=== PATIENT | female | born 1985 | race Caucasian/White ===

== ENCOUNTER 2016-03-15 16:26 | Emergency (ER) | payer OTHER ==
[~2016-03-15] VITALS: Ht 180.3 cm; Wt 142.9 kg
[2016-03-15 16:28] VITALS: TEMP 36.6; Ht 180.3 cm; Wt 142.9 kg
[2016-03-15 16:38] VITALS: O2SAT 99
[2016-03-15] MEDS ORDERED: ONDANSETRON INJ 2 MG/ML 2 ML VIAL IV STA (16:58)
[2016-03-15] MEDS ORDERED: SODIUM CHLORIDE 0.9% 1000ML 1,000 ML IV STA (16:58)
--- NOTE | 2016-03-15 17:04 | EMERGENCY ROOM VISIT NOTE ---
History Report prepared by Liset: Kitty Hummel Under the Supervision of: Dr. Harleen Mendoza M.D. First contact with patient: 16:45 Chief Complaint: CHEST PAIN Stated Complaint: CHEST PAIN,NAUSEA,JAW PAIN Nursing Triage Summary: Chest discomfort, right sided arm pain. Eva dizzy/lightheaded while driving to [place], stopped here because of her symptoms. Recent travel to [place]. On BCP and is an occasional smoker. History of Present Illness The patient is a 30 year old female who presents to the Emergency Room with complaints of constant left sided chest pain beginning a few days ago. The patient states that she has been having some chest pain for the last few days that she thought was from her gallbladder as she has a family history of gallbladder issues. Today she reports that she was driving to [place] and began to feel dizzy and lightheaded. She states that she now feels shooting pain down her left arm and into her jaw. The patient notes that she went to [place] recently. She has associated shortness of breath, vomiting, dizziness, and lightheadedness. She denies any diarrhea and rectal bleeding. Source of History: patient Onset: a few days ago Position: chest Timing: constant Associated Symptoms: + SOB, + vomiting, No diarrhea Note: She has associated shortness of dizziness and lightheadedness. She denies any rectal bleeding. Review of Systems See HPI for pertinent positives & negatives. A total of 10 systems reviewed and were otherwise negative. Past Medical & Surgical Medical Problems: (1) No Known Active Medical Problems Family History FH: gallbladder disease Social History Smoking Status: Current Some Day Smoker Marital Status: single Occupation Status: employed Current/Historical Medications Scheduled Cetirizine (Zyrtec), 10 MG PO QPM Ethinyl Estradiol/Norethindr (Microgestin 1.5MG/30MG), 1 TAB PO DAILY Nebivolol Hcl (Bystolic), 10 MG PO QPM Pantoprazole (Protonix), 40 MG PO DAILY Sertraline (Zoloft), 100 MG PO QPM Allergies Coded Allergies: Cefuroxime (Unverified Allergy, Unknown, HIVES, 03/15/16) Physical Exam Vital Signs Date Time Temp Pulse Resp B/P Pulse Ox O2 Delivery O2 Flow Rate FiO2 03/15/16 20:20 68 20 167/93 97 Room Air 03/15/16 19:08 72 19 166/94 99 Room Air 03/15/16 18:38 69 20 137/93 100 Room Air 03/15/16 17:17 72 03/15/16 16:38 99 Room Air 03/15/16 16:28 36.6 86 20 179/108 98 Room Air Physical Exam Vital signs reviewed. General: Well-appearing, obese, in no significant distress. HEENT: No scleral icterus, PERRLA, neck supple. Atraumatic. Cardiovascular: Regular rate and rhythm, no extra sounds. Pulmonary: Clear to auscultation bilaterally, normal work of breathing. Abdomen: Soft, nontender, nondistended, positive bowel sounds. Musculoskeletal: Atraumatic, no peripheral edema. Neurologic: Patient awake alert and oriented x 3, full strength in all 4 extremities. Cranial nerves 2 through 12 grossly intact. Skin: Warm, dry, no rash Medical Decision & Procedures ER Provider Diagnostic Interpretation: X-ray results as stated below per interpretation by me and the radiologist: CHEST 2 VIEWS ROUTINE FINDINGS: The bones soft tissues and hemidiaphragms are normal. The cardiomediastinal silhouette is normal. The lungs are clear. The pulmonary vasculature is normal. IMPRESSION: Negative chest. Electronically signed by: Chapincito García M.D. 03/15/2016 5:50 PM Laboratory Results 03/15/16 17:15 Red Blood Count 5.02, Mean Corpuscular Volume 82.3, Mean Corpuscular Hemoglobin 29.3, Mean Corpuscular Hemoglobin Concent 35.6, Mean Platelet Volume 10.6, Neutrophils (%) (Auto) 61.2, Lymphocytes (%) (Auto) 30.2, Monocytes (%) (Auto) 6.5, Eosinophils (%) (Auto) 1.5, Basophils (%) (Auto) 0.3, Neutrophils # (Auto) 6.00, Lymphocytes # (Auto) 2.96, Monocytes # (Auto) 0.64, Eosinophils # (Auto) 0.15, Basophils # (Auto) 0.03 03/15/16 17:15 Test 03/15/16 17:15 03/15/16 17:20 03/15/16 19:00 White Blood Count 9.81 K/uL (4.8-10.8) Red Blood Count 5.02 M/uL (4.2-5.4) Hemoglobin 14.7 g/dL (12.0-16.0) Hematocrit 41.3 % (37-47) Mean Corpuscular Volume 82.3 fL (80-100) Mean Corpuscular Hemoglobin 29.3 pg (25-34) Mean Corpuscular Hemoglobin Concent 35.6 g/dl (32-36) Platelet Count 280 K/uL (130-400) Mean Platelet Volume 10.6 fL (7.4-10.4) Neutrophils (%) (Auto) 61.2 % Lymphocytes (%) (Auto) 30.2 % Monocytes (%) (Auto) 6.5 % Eosinophils (%) (Auto) 1.5 % Basophils (%) (Auto) 0.3 % Neutrophils # (Auto) 6.00 K/uL (1.4-6.5) Lymphocytes # (Auto) 2.96 K/uL (1.2-3.4) Monocytes # (Auto) 0.64 K/uL (0.11-0.59) Eosinophils # (Auto) 0.15 K/uL (0-0.5) Basophils # (Auto) 0.03 K/uL (0-0.2) RDW Standard Deviation 40.8 fL (36.4-46.3) RDW Coefficient of Variation 13.5 % (11.5-14.5) Immature Granulocyte % (Auto) 0.3 % Immature Granulocyte # (Auto) 0.03 K/uL (0.00-0.02) Prothrombin Time 10.0 SECONDS (9.0-12.0) Prothromb Time International Ratio 0.9 (0.9-1.1) Activated Partial Thromboplast Time 27.2 SECONDS (21.0-31.0) Partial Thromboplastin Ratio 1.0 Anion Gap 10.0 mmol/L (3-11) Est Creatinine Clear Calc Drug Dose 189.6 ml/min Estimated GFR () 134.8 Estimated GFR (Non- 116.3 BUN/Creatinine Ratio 13.7 (10-20) Calcium Level 8.8 mg/dl (8.5-10.1) Total Bilirubin 0.2 mg/dl (0.2-1) Direct Bilirubin < 0.1 mg/dl (0-0.2) Aspartate Amino Transf (AST/SGOT) 25 U/L (15-37) Alanine Aminotransferase (ALT/SGPT) 45 U/L (12-78) Alkaline Phosphatase 63 U/L (45-117) Total Creatine Kinase 74 U/L (26-192) Creatine Kinase MB < 0.5 ng/ml (0.5-3.6) Creatine Kinase MB Ratio (0-3.0) Total Protein 7.6 gm/dl (6.4-8.2) Albumin 3.7 gm/dl (3.4-5.0) Bedside D-Dimer 212 ng/mlFEU (0-450) Urine Color YELLOW Urine Appearance CLEAR (CLEAR) Urine pH 5.0 (4.5-7.5) Urine Specific [place] 1.009 (1.000-1.030) Urine Protein NEG (NEG) Urine Glucose (UA) NEG (NEG) Urine Ketones NEG (NEG) Urine Occult Blood NEG (NEG) Urine Nitrite NEG (NEG) Urine Bilirubin NEG (NEG) Urine Urobilinogen NEG (NEG) Urine Leukocyte Esterase TRACE (NEG) Urine WBC (Auto) 5-10 /hpf (0-5) Urine RBC (Auto) 0-4 /hpf (0-4) Urine Hyaline Casts (Auto) 0 /lpf (0-5) Urine Epithelial Cells (Auto) >30 /lpf (0-5) Urine Bacteria (Auto) NEG (NEG) Urine Yeast (Auto) PRESENT (NONE PRSENT) Laboratory results per my review. Medications Administered Medications (Trade) Dose Ordered Sig/Bobby Route Start Time Stop Time Status Last Admin Dose Admin Sodium Chloride (Nss 1000ml) 1,000 ml @ 999 mls/hr Q1H1M STAT IV 03/15/16 16:58 03/15/16 17:58 DC 03/15/16 17:16 999 MLS/HR Ondansetron HCl (Zofran Inj) 4 mg NOW STAT IV 03/15/16 16:58 03/15/16 17:01 DC 03/15/16 17:16 4 MG Pantoprazole Sodium (Protonix Tab) 40 mg NOW STAT PO 03/15/16 19:41 03/15/16 19:42 DC 03/15/16 20:15 40 MG ECG Indication: chest pain Rate (beats per minute): 74 Rhythm: normal sinus Findings: no acute ischemic change, no ectopy ED Course 1654: Past medical records reviewed. The patient was evaluated in room C4. A complete history and physical examination was performed. 1657: Zofran Inj 4mg IV, Sodium Chloride 1000 ml @ 999 mls/hr IV. 1940: Protonix Tab 40mg PO. 1914: Upon reevaluation, the patient appeared to have improvement of her symptoms. I discussed findings with the patient. She verbalized agreement of the treatment plan. The patient was discharged home. Medical Decision Differential diagnoses include gastritis, pancreatitis, peptic ulcer disease, PE. This patient was evaluated and appeared to be in no significant distress. IV access was obtained and laboratory work was drawn. The patient was hydrated with normal saline solution given Zofran for her nausea. Laboratory work reveals a normal d-dimer. There is no concerning abnormality of the laboratory work. Urinalysis appears to be contaminated, not infectious. This will be sent for culture. Patient was educated to the findings. I suspect she is having a gastritis. Viral or food/medication mediated. She will be placed on Protonix 40 mg daily. Patient was advised to avoid soda, coffee, alcohol and any greasy or spicy foods. She will follow-up with her physician upon return home and return to the ER for worsening of symptoms or any medical concerns. Impression Primary Impression: Vomiting Additional Impression: LUQ pain Scribe Attestation The scribe's documentation has been prepared under my direction and personally reviewed by me in its entirety. I confirm that the note above accurately reflects all work, treatment, procedures, and medical decision making performed by me. Departure Information Dispostion Home / Self-Care Prescriptions Pantoprazole (Protonix) 40 Mg Tab 40 MG PO DAILY, #30 TAB Prov: Harleen Mendoza M.D. 03/15/16 Referrals No Doctor, Assigned (PCP) Forms HOME CARE DOCUMENTATION FORM, IMPORTANT VISIT INFORMATION Patient Instructions A Signature Page, [facility] [employer] Additional Instructions Diagnosis: Vomiting, left upper quadrant pain Protonix 40 mg daily. Avoid alcohol, coffee and soda Drink plenty of clear fluids and maintain a bland diet until symptoms improve. Follow-up with your physician this week for reevaluation. Return to the ER for worsening of symptoms or any medical concerns.
[2016-03-15] MEDS ORDERED: CETI10TA84 PO (17:27)
[2016-03-15] MEDS ORDERED: NORE-24 PO (17:27)
[2016-03-15] MEDS ORDERED: NEBI10TA2 PO (17:27)
[2016-03-15] MEDS ORDERED: SERT-234 PO (17:27)
--- NOTE | 2016-03-15 17:52 | DIAGNOSTIC IMAGING REPORT ---
CHEST 2 VIEWS ROUTINE CLINICAL HISTORY: cough, L CP dyspnea COMPARISON STUDY: No previous studies for comparison. FINDINGS: The bones soft tissues and hemidiaphragms are normal. The cardiomediastinal silhouette is normal. The lungs are clear. The pulmonary vasculature is normal. IMPRESSION: Negative chest. Electronically signed by: Chapincito García M.D. 03/15/2016 5:50 PM
[2016-03-15 18:06] LABS: BASO % 0.3 %; BASO ABS # 0.03 K/uL (0-0.2); COMPLETE YES; EOS % 1.5 %; HEMATOCRIT 41.3 % (37-47); IG% 0.3 %; LYMPH % 30.2 %; LYMPH ABS # 2.96 K/uL (1.2-3.4); MEAN CELL VOLUME 82.3 fL (80-100); MEAN CORPUSCULAR HEMOGLOBIN 29.3 pg (25-34); MEAN CORPUSCULAR HGB CONC 35.6 g/dl (32-36); MEAN PLATELET VOLUME 10.6 fL (7.4-10.4); MONO % 6.5 %; NEUT % 61.2 %; PLATELET COUNT 280 K/uL (130-400); RED BLOOD COUNT 5.02 M/uL (4.2-5.4); WHITE BLOOD COUNT 9.81 K/uL (4.8-10.8)
[2016-03-15 18:17] LABS: INR 0.9 (0.9-1.1)
[2016-03-15 18:30] LABS: ALT/SGPT 45 U/L (12-78); BLOOD UREA NITROGEN 9 mg/dl (7-18); BUN/CREATININE RATIO 13.7 (10-20); CALCIUM 8.8 mg/dl (8.5-10.1); CARBON DIOXIDE 24 mmol/L (21-32); CHLORIDE 108 mmol/L (98-107); CREATININE 0.67 mg/dl (0.60-1.20); GLUCOSE 81 mg/dl (70-99); POTASSIUM 3.4 mmol/L (3.5-5.1); SODIUM 142 mmol/L (136-145)
[2016-03-15 18:34] LABS: ALKALINE PHOSPHATASE 63 U/L (45-117); AST/SGOT 25 U/L (15-37)
[2016-03-15 19:22] LABS: MANUAL MICROSCOPIC REQUIRED? NO; REVIEW REQ? YES; URINE APPEARANCE CLEAR (CLEAR); URINE BILIRUBIN NEG (NEG); URINE COLOR YELLOW; URINE EPITHELIAL CELL AUTO >30 /lpf (0-5); URINE NITRITE NEG (NEG); URINE SPECIFIC GRAVITY 1.009 (1.000-1.030); UROBILINOGEN NEG (NEG); ZZUR CULT IF INDIC CLEAN CATCH YES
[2016-03-15] MEDS ORDERED: PANTOprazole SOD 40 MG TAB PO STA (19:41)
[2016-03-15] MEDS ORDERED: PANT40TA PO (19:51)
[2016-03-15 20:20] VITALS: BP 167/93; PULSE 68; O2SAT 97
== END 2016-03-15 20:25 | disposition home or self-care (01) ==
LOC: C.EDB 16:29 → C.EDC 20:25
DX: R11.10 Vomiting, unspecified (principal); R10.12 Left upper quadrant pain; R07.9 Chest pain, unspecified; R42 Dizziness and giddiness; R68.84 Jaw pain; M79.602 Pain in left arm; R06.02 Shortness of breath; E66.9 Obesity, unspecified; Z79.899 Other long term (current) drug therapy; Z88.8 Allergy status to other drugs, medicaments and biological substances; F17.200 Nicotine dependence, unspecified, uncomplicated